=== PATIENT | male | born 1960 | race African-American/Black ===

== ENCOUNTER 2020-01-15 09:39 | Emergency (ER) | payer OTHER ==
[2020-01-15 09:51] VITALS: PULSE 100; TEMP 98.7; BMI 40.3
[2020-01-15] MEDS ORDERED: SILVER SULFADIAZINE 1% TOP CREAM 50 GM JAR TP ONE ×2 (10:07→10:19)
[2020-01-15 10:40] VITALS: BP 183/94
== END 2020-01-15 11:11 | disposition home or self-care (01) ==
LOC: JERFT 09:39
DX: T21.22XA Burn of second degree of abdominal wall, initial encounter (principal); T24.211A Burn of second degree of right thigh, initial encounter
CPT/HCPCS: 99283-25

== ENCOUNTER 2022-09-15 13:13 | Emergency (ER) | payer OTHER ==
[2022-09-15 13:34] VITALS: RESP 18; BMI 40.9
[2022-09-15] MEDS ORDERED: ACETAMINOPHEN 1000 MG/100 ML BAG IVPB ONE (14:53)
[2022-09-15] MEDS ORDERED: ACETAMINOPHEN INJECTION 100 ML IVPB ONE (15:12)
[2022-09-15] MEDS ORDERED: SODIUM CHLORIDE 0.9% 500 ML INFUS.BAG IV ONE (15:22)
[2022-09-15 15:51] LABS: BASO % 0.3 % (0-2.0); EOS % 0.7 % (0-4.5); HEMATOCRIT 37.6 % (35.4-49); HEMOGLOBIN 12.2 GM/dL (11.7-16.9); LYMPH % 9.1 % (8-40); MCH 26.9 pg (25.7-33.7); MCHC 32.4 g/dl (32.0-35.9); MEAN CELL VOLUME 82.8 fl (80-96); MEAN PLT VOLUME 8.7 fl (7.5-11.1); MONO % 5.5 % (3.8-10.2); NEUT % 84.4 % (42.8-82.8); PLATELET COUNT 219 10^3/uL (134-434); RBC 4.54 M/mm3 (4.00-5.60); RDW 13.4 % (11.9-15.9); WHITE BLOOD COUNT 9.7 K/mm3 (4.0-10.0)
[2022-09-15 15:56] LABS: EPI CELLS 3 /uL (0-25.1); HYALINE CASTS 0 /uL (0-3.1); PH,URINE 7.5 (5.0-8.0); URINE APPEARANCE CLEAR; URINE BACTERIA 2 /uL (0-1359); URINE BILIRUBIN NEGATIVE (NEGATIVE); URINE COLOR YELLOW; URINE GLUCOSE (UA) 2+ (NEGATIVE); URINE KETONE TRACE (NEGATIVE); URINE LEUK ESTERASE NEGATIVE (NEGATIVE); URINE NITRITE NEGATIVE (NEGATIVE); URINE PROTEIN 3+ (NEGATIVE); URINE RBC 27 /uL (0-23.9); URINE WBC 1 /uL (0-25.8)
[2022-09-15 15:57] LABS: INR 0.97 (0.83-1.09); PROTHROMBIN TIME (PATIENT) 11.2 SEC (9.7-13.0)
[2022-09-15 16:07] LABS: POTASSIUM 4.9 mmol/L (3.5-5.1)
[2022-09-15 16:09] LABS: CALCIUM 9.2 mg/dL (8.5-10.1)
[2022-09-15 16:10] LABS: ALBUMIN 3.4 g/dl (3.4-5.0); BLOOD UREA NITROGEN 19.6 mg/dL (7-18)
[2022-09-15 16:13] LABS: CREATININE 1.4 mg/dL (0.55-1.3)
[2022-09-15 16:14] LABS: BILIRUBIN,TOTAL 0.6 mg/dL (0.2-1); TOT PROT 8.3 g/dl (6.4-8.2)
[2022-09-15 16:54] VITALS: TEMP 98
[2022-09-15] MEDS ORDERED: INSULIN (NOVOLOG) ASPART 100 UNITS/ML 10ML VIAL SQ ONE (22:34)
[2022-09-15 22:55] VITALS: BP 170/90; PULSE 98
== END 2022-09-15 23:41 | disposition home or self-care (01) ==
LOC: JER 13:13
PROC: 3E033NZ Introduction of Analgesics, Hypnotics, Sedatives into Peripheral Vein, Percutaneous Approach (ICD-10-PCS; principal; 2022-09-15)
PROC: 3E013VG Introduction of Insulin into Subcutaneous Tissue, Percutaneous Approach (ICD-10-PCS; 2022-09-15)
DX: N20.0 Calculus of kidney (principal); R10.30 Lower abdominal pain, unspecified; R11.10 Vomiting, unspecified
CPT/HCPCS: 36415; 74177-TC; 80053; 81003; 82962; 83605; 83690; 85025; 85610; 87086; 96372; 96374; 99285-25

== ENCOUNTER 2023-01-24 00:32 | Observation (INO) | payer OTHER ==
[2023-01-24] MEDS ORDERED: ERGOCALCIFEROL (VIT D2) 50,000 UNIT (1.25 MG) CAPSULE PO SCH ×2 (02:45→16:01)
[2023-01-24 06:35] LABS: BASO % 0.5 % (0-2.0); EOS % 3.4 % (0-4.5); HEMATOCRIT 34.5 % (35.4-49); HEMOGLOBIN 11.2 GM/dL (11.7-16.9); LYMPH % 22.1 % (8-40); MCH 27.6 pg (25.7-33.7); MCHC 32.5 g/dl (32.0-35.9); MEAN CELL VOLUME 84.9 fl (80-96); MEAN PLT VOLUME 8.1 fl (7.5-11.1); MONO % 5.7 % (3.8-10.2); NEUT % 68.3 % (42.8-82.8); PLATELET COUNT 222 10^3/uL (134-434); RBC 4.07 M/mm3 (4.00-5.60); RDW 13.5 % (11.9-15.9)
[2023-01-24] MEDS ORDERED: INSULIN (NOVOLOG) ASPART 100 UNITS/ML 10ML VIAL SQ SCH ×2 (07:00→11:00)
[2023-01-24] MEDS ORDERED: INSULIN (LEVEMIR) 100 UNITS/ML UNITS SQ SCH (07:00)
[2023-01-24 07:21] LABS: POTASSIUM 4.7 mmol/L (3.5-5.1)
[2023-01-24 07:26] LABS: CALCIUM 8.3 mg/dL (8.5-10.1)
[2023-01-24 07:27] LABS: BLOOD UREA NITROGEN 23.2 mg/dL (7-18)
[2023-01-24 07:30] LABS: CREATININE 1.2 mg/dL (0.55-1.3)
[2023-01-24] MEDS ORDERED: INSULIN (NOVOLOG) ASPART 100 UNITS/ML 10ML VIAL ONE (08:52)
[2023-01-24] MEDS ORDERED: CYANOCOBALAMIN 1,000 MCG TABLET (FP) PO SCH (10:00)
[2023-01-24] MEDS ORDERED: ASPIRIN 81 MG CHEWABLE TABLETS PO SCH (10:00)
[2023-01-24] MEDS ORDERED: amLODIPine BESYLATE 10 MG TABLET (FP) PO SCH (10:00)
[2023-01-24] MEDS ORDERED: ENALAPRIL MALEATE 10 MG TABLET PO SCH (10:00)
[2023-01-24] MEDS ORDERED: PATIENT'S OWN MEDICATION (NON-FORMULARY) (Brinzolamide/Brimonidine Tart [Simbrinza 1%-0.2% OU SCH (10:00)
[2023-01-24] MEDS ORDERED: ENOXAPARIN NA (PORCINE) 40 MG/0.4 ML DISP.SYRIN SQ SCH (10:00)
[2023-01-24] MEDS ORDERED: INSULIN SLIDING SCALE (NOVOLOG) 1 VIAL SQ SCH (11:00)
[2023-01-24] MEDS: INSULIN (NOVOLOG) ASPART 100 UNITS/ML 10ML VIAL SQ SCH (17:22)
[2023-01-24] MEDS ORDERED: ATORVASTATIN CA 10 MG TABLET (FP) PO SCH ×2 (22:00)
[2023-01-24] MEDS ORDERED: LATANOPROST 0.005% OPHTH SOLN 2.5ML BOTTLE OU SCH (22:00)
[2023-01-24] MEDS: BRIMONIDINE TARTRATE 0.2% OPHTHALMIC 5 ML BOTTLE OU SCH (22:32)
[2023-01-24] MEDS: ATORVASTATIN CA 40 MG TABLET (FP) PO SCH (22:32)
[2023-01-24] MEDS: ENOXAPARIN NA (PORCINE) 40 MG/0.4 ML DISP.SYRIN SQ SCH (22:33)
[2023-01-24] MEDS: ENALAPRIL MALEATE 10 MG TABLET PO SCH (22:33)
[2023-01-24] MEDS: DORZOLAMIDE 2% HCL OPHTHALMIC SOLUTION 10 ML BOTTLE OU SCH (22:33)
[2023-01-24] MEDS: LATANOPROST 0.005% OPHTH SOLN 2.5ML BOTTLE OU SCH (22:33)
[2023-01-25] MEDS: INSULIN (LEVEMIR) 100 UNITS/ML UNITS SQ SCH (06:08)
[2023-01-25] MEDS: INSULIN (NOVOLOG) ASPART 100 UNITS/ML 10ML VIAL SQ SCH ×3 (06:08→16:55)
[2023-01-25] MEDS ORDERED: INSULIN (LEVEMIR) 100 UNITS/ML UNITS SQ SCH (07:00)
[2023-01-25] MEDS ORDERED: ASPIRIN 81 MG CHEWABLE TABLETS PO SCH (10:00)
[2023-01-25] MEDS: ENALAPRIL MALEATE 10 MG TABLET PO SCH ×2 (10:22→21:48)
[2023-01-25] MEDS: BRIMONIDINE TARTRATE 0.2% OPHTHALMIC 5 ML BOTTLE OU SCH ×2 (10:22→21:52)
[2023-01-25] MEDS: amLODIPine BESYLATE 10 MG TABLET (FP) PO SCH (10:22)
[2023-01-25] MEDS: DORZOLAMIDE 2% HCL OPHTHALMIC SOLUTION 10 ML BOTTLE OU SCH ×2 (10:23→21:52)
[2023-01-25] MEDS: ENOXAPARIN NA (PORCINE) 40 MG/0.4 ML DISP.SYRIN SQ SCH (10:23)
[2023-01-25] MEDS: CYANOCOBALAMIN 1,000 MCG TABLET (FP) PO SCH (10:23)
[2023-01-25 10:37] VITALS: RESP 18
[2023-01-25 16:04] VITALS: BMI 41.8
[2023-01-25] MEDS: INSULIN SLIDING SCALE (NOVOLOG) 1 VIAL SQ SCH ×2 (16:55→21:53)
[2023-01-25] MEDS ORDERED: INSULIN (NOVOLOG) ASPART 100 UNITS/ML 10ML VIAL ONE (17:11)
[2023-01-25] MEDS: ATORVASTATIN CA 40 MG TABLET (FP) PO SCH (21:48)
[2023-01-25] MEDS: LATANOPROST 0.005% OPHTH SOLN 2.5ML BOTTLE OU SCH (21:52)
[2023-01-26] MEDS: INSULIN (NOVOLOG) ASPART 100 UNITS/ML 10ML VIAL SQ SCH ×2 (06:01→12:10)
[2023-01-26] MEDS: INSULIN (LEVEMIR) 100 UNITS/ML UNITS SQ SCH (06:01)
[2023-01-26] MEDS: INSULIN SLIDING SCALE (NOVOLOG) 1 VIAL SQ SCH ×2 (06:02→12:11)
[2023-01-26 06:15] VITALS: TEMP 98.6
[2023-01-26 07:41] LABS: HEMATOCRIT 36.5 % (35.4-49); MCH 27.8 pg (25.7-33.7); MCHC 32.8 g/dl (32.0-35.9); MEAN CELL VOLUME 84.7 fl (80-96); MEAN PLT VOLUME 8.1 fl (7.5-11.1); PLATELET COUNT 219 10^3/uL (134-434); RBC 4.31 M/mm3 (4.00-5.60)
[2023-01-26 07:53] LABS: POTASSIUM 4.7 mmol/L (3.5-5.1)
[2023-01-26] MEDS ORDERED: REGADENOSON 0.4 MG/5 ML PRE-FILLED SYRINGE IVPUSH ONE ×2 (08:28→08:45)
[2023-01-26 09:18] LABS: CALCIUM 9.2 mg/dL (8.5-10.1)
[2023-01-26 09:19] LABS: ALBUMIN 3.1 g/dl (3.4-5.0)
[2023-01-26 09:23] LABS: CREATININE 1.1 mg/dL (0.55-1.3)
[2023-01-26 09:25] LABS: BILIRUBIN,TOTAL 0.4 mg/dL (0.2-1); TOT PROT 7.8 g/dl (6.4-8.2)
[2023-01-26] MEDS ORDERED: ENOXAPARIN NA (PORCINE) 40 MG/0.4 ML DISP.SYRIN SQ SCH (10:00)
[2023-01-26] MEDS ORDERED: ASPIRIN COATED 81 MG TABLET.EC PO SCH (10:00)
[2023-01-26] MEDS: DORZOLAMIDE 2% HCL OPHTHALMIC SOLUTION 10 ML BOTTLE OU SCH (10:14)
[2023-01-26] MEDS: BRIMONIDINE TARTRATE 0.2% OPHTHALMIC 5 ML BOTTLE OU SCH (10:14)
[2023-01-26] MEDS: CYANOCOBALAMIN 1,000 MCG TABLET (FP) PO SCH (10:15)
[2023-01-26] MEDS: ENALAPRIL MALEATE 10 MG TABLET PO SCH (10:15)
[2023-01-26] MEDS: amLODIPine BESYLATE 10 MG TABLET (FP) PO SCH (10:15)
[2023-01-26] MEDS ORDERED: INSULIN (NOVOLOG) ASPART 100 UNITS/ML 10ML VIAL ONE (12:02)
[2023-01-26] MEDS ORDERED: metoPROLOL SUCCINATE 25 MG TAB.SR.24H (FP) PO SCH (14:00)
[2023-01-26 15:58] VITALS: BP 133/67; PULSE 94
== END 2023-01-26 17:37 | disposition home or self-care (01) ==
LOC: JER 00:32 → JERBED 02:06 → J6S 09:29 → J4W 15:55
PROVIDERS: ADMIT Internal Medicine; ATTEND Internal Medicine
PROC: 3E023GC Introduction of Other Therapeutic Substance into Muscle, Percutaneous Approach (ICD-10-PCS; principal; 2023-01-24)
PROC: 3E013VG Introduction of Insulin into Subcutaneous Tissue, Percutaneous Approach (ICD-10-PCS; 2023-01-24)
PROC: 3E033GC Introduction of Other Therapeutic Substance into Peripheral Vein, Percutaneous Approach (ICD-10-PCS; 2023-01-24)
DX: Z76.89 Persons encountering health services in other specified circumstances (principal); R77.8 Other specified abnormalities of plasma proteins; I10 Essential (primary) hypertension; E11.9 Type 2 diabetes mellitus without complications; E66.01 Morbid (severe) obesity due to excess calories; Z68.41 Body mass index [BMI] 40.0-44.9, adult; Z89.512 Acquired absence of left leg below knee; Z89.511 Acquired absence of right leg below knee; E78.5 Hyperlipidemia, unspecified; Z99.89 Dependence on other enabling machines and devices; I44.7 Left bundle-branch block, unspecified
CPT/HCPCS: 36415; 78452-TC; 80048; 80053; 82962; 83036; 84484; 85025; 85027; 93005; 93010; 93017; 93306-TC; 96372; 96374; 99285-25; A9502; G0378; J2785

== ENCOUNTER 2024-05-02 21:13 | Observation (INO) | payer OTHER ==
[2024-05-02 22:45] LABS: HEMATOCRIT 34.2 % (40.1-51.0); HEMOGLOBIN 10.3 g/dL (13.7-17.5); MCHC 30.1 g/dl (32.3-36.5); MEAN CELL VOLUME 91.9 fl (79.0-92.2); MEAN PLT VOLUME 9.8 fl (9.4-12.4); PLATELET COUNT 189 x10^3/uL (163-337); RDW 12.8 % (12.2-16.4); VENOUS BASE EXCESS 0.2 mmol/L (-2-2); VENOUS O2 SATURATION 69.8 % (70-80); VENOUS PCO2 53.6 mmHg (38-52); VENOUS PH 7.32 (7.310-7.410)
[2024-05-02 23:04] LABS: POTASSIUM 4.8 mmol/L (3.5-5.1)
[2024-05-02 23:06] LABS: ALBUMIN 3.2 g/dl (3.4-5.0); BLOOD UREA NITROGEN 18.4 mg/dL (7-18); CALCIUM 8.9 mg/dL (8.5-10.1)
[2024-05-02 23:09] LABS: CREATININE 1.3 mg/dL (0.55-1.3)
[2024-05-02 23:11] LABS: BILIRUBIN,TOTAL 0.2 mg/dL (0.2-1); TOT PROT 7.7 g/dl (6.4-8.2)
[2024-05-02] MEDS ORDERED: CEFTRIAXONE 1 G/50 ML PREMIX 50 ML IVPB ONE (23:49)
[2024-05-02] MEDS: CEFTRIAXONE 1 GM in DEXTROSE 5%-WATER - 100 ML IVPB ONE (23:55)
[2024-05-02] MEDS ORDERED: AZITHROMYCIN IVPB 500 MG/250 ML BAG IVPB ONE (23:59)
[2024-05-03] MEDS: AZITHROMYCIN IVPB 500 MG in DEXTROSE 5%-WATER - 250 ML IVPB ONE (00:13)
[2024-05-03] MEDS ORDERED: ERGOCALCIFEROL (VIT D2) 50,000 UNIT (1.25 MG) CAPSULE PO SCH (02:00)
[2024-05-03] MEDS ORDERED: MORPHINE SULFATE 2 MG/ML SYRINGE ONE (02:08)
[2024-05-03] MEDS: MORPHINE SULFATE 2 MG/ML SYRINGE IVPUSH ONE (02:13)
[2024-05-03 03:52] VITALS: BMI 47.0
[2024-05-03] MEDS: INSULIN ASPART SLIDING SCALE (NOVOLOG) 1 VIAL SQ SCH (06:21)
[2024-05-03] MEDS ORDERED: INSULIN ASPART SLIDING SCALE (NOVOLOG) 1 VIAL SQ SCH (07:00)
[2024-05-03 07:47] LABS: ABSOLUTE IMMATURE GRANULOCYTES 0.01 x10^3/uL (0.0-0.031); BASOPHILS # 0.02 x10^3/uL (0.01-0.08); EOSINOPHIL % 4.2 % (0.8-7.0); EOSINOPHILS # 0.25 x10^3/uL (0.04-0.54); HEMATOCRIT 36.2 % (40.1-51.0); MCHC 30.4 g/dl (32.3-36.5); MEAN CELL VOLUME 91.9 fl (79.0-92.2); MEAN PLT VOLUME 10.3 fl (9.4-12.4); MONOCYTE # 0.36 x10^3/uL (0.30-0.82); PLATELET COUNT 202 x10^3/uL (163-337); RDW 12.9 % (12.2-16.4)
[2024-05-03 08:11] LABS: POTASSIUM 4.8 mmol/L (3.5-5.1)
[2024-05-03 08:18] LABS: BLOOD UREA NITROGEN 16.6 mg/dL (7-18); CALCIUM 8.9 mg/dL (8.5-10.1); MAGNESIUM 2.2 mg/dL (1.8-2.4)
[2024-05-03 08:20] LABS: ALBUMIN 3.3 g/dl (3.4-5.0)
[2024-05-03 08:21] LABS: CREATININE 1.1 mg/dL (0.55-1.3); PHOSPHOROUS 3.4 mg/dL (2.5-4.9)
[2024-05-03 08:23] LABS: BILIRUBIN,TOTAL 0.4 mg/dL (0.2-1)
[2024-05-03 08:26] LABS: TOT PROT 7.9 g/dl (6.4-8.2)
[2024-05-03] MEDS: ENALAPRIL MALEATE 10 MG TABLET PO SCH (09:52)
[2024-05-03] MEDS: amLODIPine BESYLATE 10 MG TABLET (FP) PO SCH (09:52)
[2024-05-03] MEDS: AZITHROMYCIN IVPB 250 MG in DEXTROSE 5%-WATER - 250 ML IVPB SCH (09:52)
[2024-05-03] MEDS: CEFTRIAXONE 1 G/50 ML PREMIX 50 ML IVPB SCH (09:52)
[2024-05-03] MEDS: CYANOCOBALAMIN 1,000 MCG TABLET (FP) PO SCH (09:52)
[2024-05-03] MEDS: ENOXAPARIN NA (PORCINE) 40 MG/0.4 ML DISP.SYRIN SQ SCH (09:53)
[2024-05-03] MEDS: INSULIN GLARGINE (LANTUS) 100 UNITS/ML UNITS SQ SCH (09:53)
[2024-05-03] MEDS: ASPIRIN COATED 81 MG TABLET.EC PO SCH (09:53)
[2024-05-03] MEDS: ATORVASTATIN CA 10 MG TABLET (FP) PO SCH (21:01)
[2024-05-05 08:47] VITALS: BP 153/81; PULSE 96; RESP 18; TEMP 98.8
== END 2024-05-05 08:50 | disposition home or self-care (01) ==
LOC: JER 21:13 → JERBED 23:47 → J4W 05-03 03:28
PROVIDERS: ADMIT Hospitalist; ATTEND Internal Medicine
PROC: 3E03329 Introduction of Other Anti-infective into Peripheral Vein, Percutaneous Approach (ICD-10-PCS; principal; 2024-05-02)
PROC: 3E023GC Introduction of Other Therapeutic Substance into Muscle, Percutaneous Approach (ICD-10-PCS; 2024-05-02)
PROC: 3E013VG Introduction of Insulin into Subcutaneous Tissue, Percutaneous Approach (ICD-10-PCS; 2024-05-02)
DX: J18.9 Pneumonia, unspecified organism (principal); I50.30 Unspecified diastolic (congestive) heart failure; I10 Essential (primary) hypertension; E11.9 Type 2 diabetes mellitus without complications; E78.5 Hyperlipidemia, unspecified; Z89.512 Acquired absence of left leg below knee; Z89.511 Acquired absence of right leg below knee
CPT/HCPCS: 0241U-QW; 36415; 71045-TC-FY; 80053; 82803; 82962; 83735; 83880; 84100; 84484; 85025; 85027; 93005; 93010; 93306-TC; 96365; 96367; 96372; 96375; 99285-25; G0378

== ENCOUNTER 2024-07-30 14:13 | Inpatient (IN) | payer OTHER ==
[2024-07-30] MEDS ORDERED: ALBUTEROL SO4 2.5/IPRATROPIUM 0.5 INH SOL 3 ML VIAL.NEB. NEB ONE (15:37)
[2024-07-30] MEDS: ALBUTEROL SO4 2.5/IPRATROPIUM 0.5 INH SOL 3 ML VIAL.NEB. NEB ONE (15:40)
[2024-07-30] MEDS ORDERED: predniSONE 20 MG TABLET (UD) ONE (15:45)
[2024-07-30] MEDS: methylPREDNISolone NA SUCC 125 MG/2 ML VIAL IVPUSH ONE (15:48)
[2024-07-30] MEDS: predniSONE 20 MG TABLET (UD) PO ONE (15:48)
[2024-07-30 16:10] LABS: POTASSIUM 5.8 mmol/L (3.5-5.1)
[2024-07-30 16:12] LABS: CALCIUM 9.4 mg/dL (8.5-10.1)
[2024-07-30 16:13] LABS: ALBUMIN 3.3 g/dl (3.4-5.0); BLOOD UREA NITROGEN 26.6 mg/dL (7-18)
[2024-07-30 16:16] LABS: CREATININE 1.3 mg/dL (0.55-1.3)
[2024-07-30 16:17] LABS: BILIRUBIN,TOTAL 0.3 mg/dL (0.2-1); TOT PROT 8.1 g/dl (6.4-8.2)
[2024-07-30 16:21] LABS: N-TERMINAL BNP 242.6 pg/ml (5-125)
[2024-07-30 17:33] LABS: POTASSIUM 5.7 mmol/L (3.5-5.1)
[2024-07-30 17:33] LABS: ABSOLUTE IMMATURE GRANULOCYTES 0.03 x10^3/uL (0.0-0.031); BASOPHILS # 0.02 x10^3/uL (0.01-0.08); EOSINOPHIL % 1.3 % (0.8-7.0); EOSINOPHILS # 0.11 x10^3/uL (0.04-0.54); HEMATOCRIT 36.5 % (40.1-51.0); HEMOGLOBIN 10.8 g/dL (13.7-17.5); MCHC 29.6 g/dl (32.3-36.5); MEAN CELL VOLUME 91.5 fl (79.0-92.2); MEAN PLT VOLUME 10.2 fl (9.4-12.4); MONOCYTE # 0.36 x10^3/uL (0.30-0.82); MONOCYTE % 4.3 % (5.3-12.2); PLATELET COUNT 201 x10^3/uL (163-337); RDW 12.8 % (12.2-16.4)
[2024-07-30 17:35] LABS: CALCIUM 9.3 mg/dL (8.5-10.1)
[2024-07-30 17:36] LABS: ALBUMIN 3.3 g/dl (3.4-5.0); BLOOD UREA NITROGEN 24.8 mg/dL (7-18); MAGNESIUM 2.2 mg/dL (1.8-2.4)
[2024-07-30 17:39] LABS: CREATININE 1.3 mg/dL (0.55-1.3)
[2024-07-30 17:41] LABS: BILIRUBIN,TOTAL 0.3 mg/dL (0.2-1)
[2024-07-30 17:54] LABS: TOT PROT 7.8 g/dl (6.4-8.2)
[2024-07-30] MEDS ORDERED: CEFTRIAXONE 1 GM/50 ML BAG ONE (18:26)
[2024-07-30] MEDS: CEFTRIAXONE 1,000 MG in DEXTROSE 5%-WATER - 50 ML IVPB ONE (18:34)
[2024-07-30] MEDS ORDERED: AZITHROMYCIN 500 MG TABLET ONE (18:35)
[2024-07-30] MEDS: AZITHROMYCIN 500 MG TABLET PO ONE (18:36)
[2024-07-30] MEDS ORDERED: SODIUM ZIRCONIUM CYCLOSILICATE (LOKELMA) 10 GM PACKET ONE (18:37)
[2024-07-30] MEDS: SODIUM ZIRCONIUM CYCLOSILICATE (LOKELMA) 5 GM PACKET PO ONE (18:41)
[2024-07-30] MEDS ORDERED: ALBUTEROL SO4 0.083% IH SOL 2.5 MG/3 ML VIAL.NEB. NEB ONE (20:31)
[2024-07-30] MEDS: ALBUTEROL SO4 0.083% IH SOL 2.5 MG/3 ML VIAL.NEB. NEB SCH (20:34)
[2024-07-30 21:16] LABS: VENOUS BASE EXCESS -5.5 mmol/L (-2-2); VENOUS O2 SATURATION 72.8 % (70-80); VENOUS PCO2 50.9 mmHg (38-52); VENOUS PH 7.254 (7.310-7.410)
[2024-07-30] MEDS: ENALAPRIL MALEATE 10 MG TABLET PO SCH (23:14)
[2024-07-30] MEDS: DOXYCYCLINE INJECTION 100 MG in DEXTROSE 5%-WATER 100 ML IVPB SCH (23:14)
[2024-07-30] MEDS: INSULIN GLARGINE (LANTUS) 100 UNITS/ML UNITS SQ SCH (23:14)
[2024-07-30] MEDS: ATORVASTATIN CA 10 MG TABLET (FP) PO SCH (23:14)
[2024-07-30] MEDS: HEPARIN NA (PORCINE) 5,000 UNITS/ML 1ML VIAL SQ SCH (23:14)
[2024-07-31 05:29] VITALS: BMI 41.8
[2024-07-31] MEDS: INSULIN ASPART SLIDING SCALE (NOVOLOG) 1 VIAL SQ SCH (06:42)
[2024-07-31 07:35] LABS: ABSOLUTE IMMATURE GRANULOCYTES 0.03 x10^3/uL (0.0-0.031); BASOPHILS # 0.01 x10^3/uL (0.01-0.08); HEMATOCRIT 36.5 % (40.1-51.0); MCHC 30.1 g/dl (32.3-36.5); MEAN CELL VOLUME 91.5 fl (79.0-92.2); MEAN PLT VOLUME 10.4 fl (9.4-12.4); MONOCYTE # 0.43 x10^3/uL (0.30-0.82); MONOCYTE % 4.5 % (5.3-12.2); PLATELET COUNT 232 x10^3/uL (163-337); RDW 12.8 % (12.2-16.4)
[2024-07-31 07:51] LABS: CHLORIDE 105 mmol/L (98-107); POTASSIUM 5.6 mmol/L (3.5-5.1); SODIUM 137 mmol/L (136-145)
[2024-07-31 07:53] LABS: ANION GAP 7 mmol/L (4-13); BLOOD UREA NITROGEN 28.7 mg/dL (7-18); CALCIUM 9.7 mg/dL (8.5-10.1); CO2 26 mmol/L (21-32)
[2024-07-31 07:56] LABS: CREATININE 1.4 mg/dL (0.55-1.3)
[2024-07-31 07:58] LABS: GLUCOSE,RANDOM 415 mg/dL (74-106)
[2024-07-31] MEDS: INSULIN (NOVOLOG) ASPART 100 UNITS/ML 10ML VIAL SQ SCH ×2 (09:11→11:17)
[2024-07-31] MEDS: SODIUM ZIRCONIUM CYCLOSILICATE (LOKELMA) 5 GM PACKET PO SCH (10:04)
[2024-07-31] MEDS: metFORMIN HCL 500 MG TABLET (FP) PO SCH (10:05)
[2024-07-31] MEDS: ASPIRIN COATED 81 MG TABLET.EC PO SCH (10:05)
[2024-07-31] MEDS: amLODIPine BESYLATE 10 MG TABLET (FP) PO SCH (10:05)
[2024-07-31] MEDS: CEFTRIAXONE 1 GM in DEXTROSE 5%-WATER - 50 ML IVPB SCH (10:06)
[2024-07-31] MEDS: CALCIUM GLUCONATE 10% - 1,000 MG/10 ML VIAL IVPUSH ONE (14:35)
[2024-07-31 15:40] LABS: ARTERIAL BLD GAS O2 SATURATION 93.3 % (95-98); ARTERIAL BLOOD GAS BASE EXCESS 0 mmol/L (-2-2); ARTERIAL BLOOD GAS PO2 69.2 mmHg (80-100); ARTERIAL BLOOD GAS pH 7.367 (7.350-7.450); O2 CONTENT 1.59 % vol
[2024-07-31 15:41] LABS: ALLENS TEST POSITIVE
[2024-07-31 15:48] LABS: POTASSIUM 4.4 mmol/L (3.5-5.1)
[2024-07-31 15:49] LABS: CALCIUM 9.8 mg/dL (8.5-10.1)
[2024-07-31 15:50] LABS: BLOOD UREA NITROGEN 30.4 mg/dL (7-18)
[2024-07-31 15:53] LABS: CREATININE 1.3 mg/dL (0.55-1.3)
[2024-08-01 06:29] LABS: ABSOLUTE IMMATURE GRANULOCYTES 0.03 x10^3/uL (0.0-0.031); BASOPHILS # 0.02 x10^3/uL (0.01-0.08); EOSINOPHIL % 4.1 % (0.8-7.0); EOSINOPHILS # 0.27 x10^3/uL (0.04-0.54); HEMATOCRIT 36.4 % (40.1-51.0); MCHC 30.2 g/dl (32.3-36.5); MEAN CELL VOLUME 91.7 fl (79.0-92.2); MEAN PLT VOLUME 10.1 fl (9.4-12.4); MONOCYTE # 0.45 x10^3/uL (0.30-0.82); MONOCYTE % 6.8 % (5.3-12.2); PLATELET COUNT 216 x10^3/uL (163-337); RDW 12.9 % (12.2-16.4)
[2024-08-01 06:48] LABS: POTASSIUM 4.4 mmol/L (3.5-5.1)
[2024-08-01 06:54] LABS: CALCIUM 9.6 mg/dL (8.5-10.1)
[2024-08-01 06:55] LABS: ALBUMIN 3.1 g/dl (3.4-5.0); BLOOD UREA NITROGEN 36.3 mg/dL (7-18)
[2024-08-01 06:58] LABS: CREATININE 1.5 mg/dL (0.55-1.3)
[2024-08-01 07:00] LABS: BILIRUBIN,TOTAL 0.4 mg/dL (0.2-1); TOT PROT 7.6 g/dl (6.4-8.2)
[2024-08-01 09:13] VITALS: RESP 20
[2024-08-01 15:38] VITALS: BP 135/68; PULSE 103; TEMP 98.8
== END 2024-08-01 17:25 | disposition home or self-care (01) | DRG 189 ==
LOC: JER 14:13 → JERBED 16:28 → OBSVTOIN 17:54 → J4W 22:34 → J4S 22:57
PROVIDERS: ADMIT Internal Medicine; ATTEND Internal Medicine
DX: J96.01 Acute respiratory failure with hypoxia (principal); J18.9 Pneumonia, unspecified organism; E66.2 Morbid (severe) obesity with alveolar hypoventilation; J96.02 Acute respiratory failure with hypercapnia; I10 Essential (primary) hypertension; E78.5 Hyperlipidemia, unspecified; Z89.519 Acquired absence of unspecified leg below knee; I73.9 Peripheral vascular disease, unspecified; E11.65 Type 2 diabetes mellitus with hyperglycemia; E87.5 Hyperkalemia
CPT/HCPCS: 36415; 36600; 71045-TC-FY; 71250-TC; 80048; 80053; 82803; 82962; 83036; 83735; 83880; 84132; 84484; 85025; 93005; 93010; 94640; 99285-25; G0378